=== PATIENT | male | born 1995 | race African-American/Black ===

== ENCOUNTER 2021-01-01 16:00 | Emergency (ER) | payer OTHER, SELFPAY ==
[2021-01-01] MEDS ORDERED: Lidocaine 1% 20 ML MDV ONE (18:06)
[2021-01-01] MEDS ORDERED: Boostrix 0.5 ML (Tdap) VIAL ONE (19:03)
[2021-01-01] MEDS ORDERED: CEFAZOLIN 1 GM VIAL ONE ×2 (19:03→19:08)
[2021-01-01] MEDS ORDERED: Sterile Water 10 ML ONE (19:08)
[2021-01-01] MEDS ORDERED: HYDROcodone/Acetaminophen 10/325 mg Tablet ONE (21:55)
== END 2021-01-01 22:15 | disposition short-term general hospital (02) ==
LOC: MADERS 16:00
DX: S67.01XA Crushing injury of right thumb, initial encounter (principal); S56.021A Laceration of flexor muscle, fascia and tendon of right thumb at forearm level, initial encounter; F17.210 Nicotine dependence, cigarettes, uncomplicated; W22.8XXA Striking against or struck by other objects, initial encounter
CPT/HCPCS: 90471; 90715; 96372; J0690